=== PATIENT | female | born 2000 | race Two or more races ===

== ENCOUNTER 2024-02-20 21:21 | Emergency (ER) | payer SELFPAY ==
[~2024-02-20] VITALS: Ht 157.5 cm; Wt 49.9 kg
[2024-02-20] MEDS ORDERED: HYDROcodone 5-APAP 325 TAB PO ONE (21:50)
[2024-02-20] MEDS ORDERED: Lidocaine/Tetracaine/Epinephr 3 ML GEL SYRINGE TOP ONE (22:30)
[2024-02-20] MEDS ORDERED: Lidocaine 2.5%/Prilocaine 2.5% Cream 5 GM TOP ONE (22:35)
[2024-02-20] MEDS ORDERED: LIDOCAINE 2.5%/PRILOCAINE 2.5% CREAM 30 GM TUBE TOP ONE (22:40)
[2024-02-20] MEDS ORDERED: Erythromycin 0.5% Opth Oint 1 gm LEFTEYE ONE (23:25)
[2024-02-20] MEDS ORDERED: ERYT.5TO BOTHEYES (23:26)
== END 2024-02-20 23:34 | disposition home or self-care (01) ==
LOC: ER 21:21
DX: S01.112A Laceration without foreign body of left eyelid and periocular area, initial encounter (principal); W22.8XXA Striking against or struck by other objects, initial encounter
CPT/HCPCS: 12011; 99282-25; A9270